=== PATIENT | male | born 1975 | race Caucasian/White ===

== ENCOUNTER 2017-08-07 14:01 | Outpatient (CLI) ==
[2015-07-03 20:08] VITALS: BMI 38.5
--- NOTE | 2017-08-07 15:17 | DI ---
EXAM: CHEST FRONTAL AND LATERAL VIEWS HISTORY: Cough. COMPARISON: None FINDINGS: Heart size and mediastinal contour within normal limits. No acute infiltrates. Normal vascularity with no pleural fluid or pneumothorax. The bony thorax has no acute finding. IMPRESSION: No acute process.
== END 2017-08-07 14:02 | disposition home or self-care (01) ==
LOC: RAD 14:01
PROVIDERS: ATTEND Internal Medicine
DX: R05 Cough (principal)

== ENCOUNTER 2018-03-08 14:00 | Emergency (ER) ==
[2018-03-08 14:08] VITALS: BP 128/84; TEMP 98.9; BMI 40.0
--- NOTE | 2018-03-08 14:19 | ED.PDOC ---
General ED Provider: Dr. YANNA SINHA Chief Complaint: Headache Stated Complaint: Severe Headache: C/o experiencing pain which is radiating from posterior neck to his temples. Has Pain and pressure to top of head. Hx of migraine headaches. Previoulsy treated for Cervical degenerative disc disease. This morning had mild headache and became nauseated at which time started dry heaving afterwhich intensity of pain in his neck became much more intense. Has experiencing severe neck pain, sweating, chills, nausea, and vomiting x 2. Reports minimal photophobia. Dry heaving Time Seen by Physician: 14:20 Mode of Arrival: Walk-In Information Source: Patient Exam Limitations: No limitations Primary Care Provider: JUAN J MARIE Nursing and Triage Documentation Reviewed and Agree: Yes Reviewed sepsis parameters & appropriate labs ordered?: Yes System Inflammatory Response Syndrome: Not Applicable Sepsis Protocol: For patient's 13 years and over: Temp is 96.8 and below OR 101 and greater Pulse >90 BPM Resp >20/minute Acutely Altered Mental Status Are patient's symptoms suggestive of a new infection, such as: -Pneumonia -Skin, Soft Tissue -Endocarditis -UTI -Bone, Joint Infection -Implantable Device -Acute Abdominal Infection -Wound Infection -Meningitis -Blood Stream Catheter Infection -Unknown Neurological Complaint Exam - Headache Complaint/Exam Onset: Gradual Duration: 6 hrs Symptoms Are: Still present Timing: Constant Episodes Lasting: Hours Worst Headache Ever: Yes Initial Severity: Moderate Current Severity: Moderate Location: Right, Frontal, Temporal, Occipital Character: Reports: Dull, Throbbing, Pressure Aggravating: Reports: Exertion, Position change, Bright lights Alleviating: Reports: None Associated Signs and Symptoms: Reports: Nausea, Neck pain, Neck stiffness, Visual changes Related Surgical History: Reports: None SAH Risk Factors: Reports: Polycystic Kidney Disease Meningitis Risk Factors: Reports: None SDH Risk Factors: Reports: None Temporal Arteritis Risk Factors: Reports: None Normal Head CT Within Last 12 Months: No Fundoscopic Exam: Present: Normal Findings Papilledema Present: Yes Temporal Artery Tenderness: Present: None Sinus Tenderness: Present: None TMJ Tenderness: Present: None Glascow Coma Scale (see protocol): 15 Meningeal Signs Positive: No Pain on Passive Flexion-Positive Kernig's: No ROM Limited In: Side bending right, Side bending left, Rotation right, Rotation left Focal Weakness: Present: None Focal Sensory Loss: Present: None Gait: Normal Nystagmus Present: No Gag Reflex Present: No [id number]: Normal Findings Romberg Test Positive: No Babinski Sign: Negative Right, Negative Left Differential Diagnoses: Tension Headache Review of Systems - Review Of Systems Constitutional: Reports: No symptoms Eyes: Reports: No symptoms Ears, Nose, Mouth, Throat: Reports: No symptoms Respiratory: Reports: No symptoms Cardiac: Reports: No symptoms GI: Reports: No symptoms : Reports: No symptoms Musculoskeletal: Reports: Neck pain Skin: Reports: No symptoms Neurological: Reports: Headache Endocrine: Reports: No symptoms Hematologic/Lymphatic: Reports: No symptoms All Other Systems: Reviewed and Negative Past Medical History - Past Medical History Previously Healthy: Yes Endocrine: Reports: None Cardiovascular: Reports: Hypertension Respiratory: Reports: None Hematological: Reports: None Gastrointestinal: Reports: None Genitourinary: Reports: Kidney stones Neuro/Psych: Reports: None, Migraine Musculoskeletal: Reports: Joint Pain, Other Cancer: Reports: None - Surgical History General Surgical History: Reports: Unknown - Family History Family History: Reports: Unknown - Social History Smoking Status: Never smoker Hx Substance Use: No Alcohol Screening: Occasionally - Immunizations Tetanus Shot up to Date: Yes Physical Exam - Physical Exam Appearance: Well-appearing, No pain distress, Well-nourished Eyes: DILAN, EOMI, Conjunctiva clear ENT: Ears normal, Nose normal, Oropharynx normal Neck: Supple (Tender to flexion. NO Nuchal tightness or rigidity.) Respiratory: Airway patent, Breath sounds clear, Breath sounds equal, Respirations nonlabored Cardiovascular: RRR, Pulses normal, No rub, No murmur GI/: Soft, Nontender, No masses, Bowel sounds normal, No Organomegaly Musculoskeletal: Normal strength, ROM intact, No edema, No calf tenderness Skin: Warm, Dry, Normal color Neurological: Sensation intact, Motor intact, Reflexes intact, Cranial nerves intact, Alert, Oriented Psychiatric: Affect appropriate, Mood appropriate Re-Evaluation - Re-Evaluation Time of Re-Evaluation: 16:30 Status: Unchanged Vital Signs Stable: Yes Appearance: NAD Lungs: Clear Skin: Warm and Dry Neuro: Alert and Oriented X3 CV: RRR Critical Care Note - Critical Care Note Total Time (mins): 60 (Evaluation, diagnostic evaluation, discharge instrucitions) Course - Course Hematology/Chemistry: 03/08/18 15:36 03/08/18 15:30 Orders, Labs, Meds: Lab Review 03/08/18 03/08/18 15:30 15:36 WBC 9.76 RBC 5.00 Hgb 14.6 Hct 42.9 MCV 85.8 MCH 29.2 MCHC 34.0 RDW Coeff of Cindy 13.6 Plt Count 216 Immature Gran % (Auto) 0.3 Neut % (Auto) 75.0 Lymph % (Auto) 18.8 [place] % (Auto) 5.6 Eos % (Auto) 0.1 Baso % (Auto) 0.2 Immature Gran # (Auto) 0.0 Neut # (Auto) 7.3 H Lymph # (Auto) 1.8 [place] # (Auto) 0.6 Eos # (Auto) 0.0 Baso # (Auto) 0.0 Sodium 136 Potassium 4.2 Chloride 102 Carbon Dioxide 26 Anion Gap 12.2 BUN 12 Creatinine 0.97 Estimated GFR (MDRD) 85.00 BUN/Creatinine Ratio 12.37 Glucose 137 H Calcium 9.1 Total Bilirubin 1.5 H AST 22 ALT 45 Alkaline Phosphatase 57 Total Protein 6.9 Albumin 3.6 Globulin 3.3 Albumin/Globulin Ratio 1.09 Orders Category Date Time Status EKG-(ED ONLY) Stat CARDIO 03/08/18 16:06 Ordered CBC W/ AUTO DIFF Stat LAB 03/08/18 15:36 Completed CMP [COMPREHENSIVE METABOLIC PANEL] Stat LAB 03/08/18 15:30 Completed PARTIAL THROMBOPLASTIN TIME Stat LAB 03/08/18 16:21 Ordered PT WITH INR Stat LAB 03/08/18 16:21 Ordered Ketorolac Tromethamine [Toradol] MEDS 03/08/18 14:29 Discontinued 30 mg IM ONCE STA Orphenadrine Citrate [Norflex] MEDS 03/08/18 14:31 Discontinued 100 mg PO ONCE STA Promethazine HCl [Phenergan 25 mg/ml Vial] MEDS 03/08/18 14:29 Discontinued 25 mg IM ONCE STA CT HEAD W/O CONTRAST Stat RADS 03/08/18 14:50 Completed Medications Discontinued Medications Generic Name Dose Route Start Last Admin Trade Name Freq PRN Reason Stop Dose Admin Ketorolac Tromethamine 30 mg 03/08/18 14:29 03/08/18 14:49 Toradol IM 03/08/18 14:30 30 mg ONCE STA Administration Orphenadrine Citrate 100 mg 03/08/18 14:31 03/08/18 14:47 Norflex PO 03/08/18 14:32 100 mg ONCE STA Administration Promethazine HCl 25 mg 03/08/18 14:29 03/08/18 14:48 Phenergan 25 Mg/Ml Vial IM 03/08/18 14:30 25 mg ONCE STA Administration Vital Signs: Temp Pulse Resp BP Pulse Ox 03/08/18 14:00 98.9 F 71 18 128/84 95 Departure - Departure Time of Disposition: 16:40 Disposition: TSF SHORT-TRM HOSP Discharge Problem: Subarachnoid bleed, Cephalgia Condition: Stable Pt referred to PMD for follow-up: Yes (post hospitalization ) IPMP verified?: No Prescriptions: Ketorolac Tromethamine [Toradol] 10 mg PO Q6H PRN #20 tablet PRN Reason: Headache or neck pain Ondansetron [Zofran Odt] 4 mg PO Q8H PRN #7 tab.rapdis PRN Reason: Nausea and vomiting Allergies/Adverse Reactions: Allergies No Known Allergies Allergy (Verified 03/08/18 14:08) Home Medications: Ambulatory Orders Hydrocodone/Acetaminophen [Lortab 5-325 Mg Tablet] 1 each PO TID or QID PRN Cyclobenzaprine HCl [Flexeril] 10 mg PO PRN PRN 03/08/18 Ketorolac Tromethamine [Toradol] 10 mg PO Q6H PRN #20 tablet 03/08/18 Ondansetron [Zofran Odt] 4 mg PO Q8H PRN #7 tab.rapdis 03/08/18 Transfer Form Completed: Yes Disposition Discussed With: Patient, Family
[2018-03-08] MEDS ORDERED: PHENERGAN 25 MG/ML VIAL IM STA (14:29)
[2018-03-08] MEDS ORDERED: TORADOL IM STA (14:29)
[2018-03-08] MEDS ORDERED: NORFLEX PO STA (14:31)
--- NOTE | 2018-03-08 15:42 | CT ---
EXAM: CT of the head without contrast History: Cephalgia, headache and neck pain. Comparison: None available. Technique: Multiplanar CT images through the head were obtained without the administration of IV con trast Findings: The visualized paranasal sinuses and mastoid air cells are clear in general. No acute carmela varial abnormalities. Intracranially the ventricular and cisternal spaces are normal in size, shape and configuration for a patient of this age. No dominant mass or midline shift. No hydrocephalous. Seen on axial image nu mber 10 there is a 7.6 mm hyperdense focus within the right temporal lobe sylvian fissure. There is a lso a hyperdense star sign seen within the basilar cisterns. Impression: 1. Findings suspicious for subarachnoid hemorrhage within the basilar cisterns concerning for aneury sm rupture, possibly the anterior communicating artery. Recommend further evaluation with CTA of the head. 2. Small amount of hemorrhage within the right temporal region probably within the sylvian fissure. Critical results communicated to Dr. Allison at 3:36 p.m. 03/08/2018
[2018-03-08] MEDS ORDERED: DILAUDID IVP STA (17:40)
[2018-03-08] MEDS ORDERED: ZOFRAN 4 MG/2 ML IVP STA (17:43)
[2018-03-08] MEDS ORDERED: ZOFRAN 4 MG/2 ML ONE (17:45)
== END 2018-03-08 17:50 | disposition short-term general hospital (02) ==
LOC: ED 14:00
DX: I60.9 Nontraumatic subarachnoid hemorrhage, unspecified (principal); R51 Headache; R11.2 Nausea with vomiting, unspecified; M54.2 Cervicalgia; I10 Essential (primary) hypertension
CPT/HCPCS: 36415; 80053; 85025; 85610; 85730; 93005; 93010; 96372; 96375; 99285